=== PATIENT | male | born 1940 | race Caucasian/White ===

== ENCOUNTER 2016-05-19 19:22 | Inpatient (IN) | payer OTHER, MEDICARE ==
[~2016-05-19] VITALS: Ht 172.7 cm; Wt 81.6 kg
[2016-05-19 23:16] LABS: EOSINOPHIL (%) 0.6 % (0-5); EOSINOPHIL COUNT 0.1 K/uL (0-0.3); HEMATOCRIT 46.2 % (38.0-50.0); IMMATURE GRANULOCYTE (%) 0.2 % (0.0-0.7); IMMATURE GRANULOCYTE COUNT 0.2 K/uL; LYMPHOCYTE COUNT 5.3 K/uL (1.0-2.8); MCH 29.1 PG (29.0-34.0); MCHC 33.5 G/DL (30.0-36.0); MCV 86.7 FL (86-99); MEAN PLAT.VOLUME 10.6 uM^3 (9.0-12.4); MONOCYTE (%) 6.1 % (3-12); MONOCYTE COUNT 0.7 K/uL (0-0.8); PLATELET COUNT 166 K/uL (156-360); RBC DIS.WIDTH-SD 40.8 % (39-53); RED BLOOD COUNT 5.33 M/uL (4.00-5.50)
[2016-05-19 23:27] LABS: CHLORIDE 108 mEq/L (99-109); POTASSIUM 4.1 mEq/L (3.7-5.4); SODIUM 141 mEq/L (136-147)
[2016-05-19 23:29] LABS: GLUCOSE 103 mg/dL (70-99)
[2016-05-19 23:30] LABS: ANION GAP 9 MEQ/L (2-14)
[2016-05-19 23:31] LABS: TOTAL BILIRUBIN 0.5 mg/dL (0.0-1.0)
[2016-05-19 23:32] LABS: SERUM ETHYL ALCOHOL < 10 mg/dL
[2016-05-19 23:33] LABS: ALKALINE PHOSPHATASE 72 IU/L (3-129); GFR ESTIMATE (CALCULATED) > 59 mL/min/
[2016-05-19 23:35] LABS: UREA NITROGEN (BUN) 20 mg/dL (9-23)
[2016-05-19 23:36] LABS: SALICYLATE < 5.0 MG/DL (15-30)
[2016-05-20 01:57] LABS: ADD MIUA? NO; BILIRUBIN NEGATIVE; BLOOD NEGATIVE; COLOR YELLOW ((YELLOW)); GLUCOSE (STRIP) NEGATIVE; KETONES 20; LEUKOCYTES NEGATIVE; NITRITE NEGATIVE; PROTEIN (STRIP) NEGATIVE; SPECIFIC GRAVITY 1.023 (1.000-1.030); UCUL ADDED? NO; UROBILINOGEN 0.2 MG/DL (0.2-1.0)
[2016-05-20 02:06] LABS: ADD MEDTOX COMMENT Y; AMPHETAMINE NEGATIVE (500 ng/mL); BARBITURATES NEGATIVE (200 ng/mL); BENZODIAZEPINES PRESUMPTIVE POSITIVE (150 ng/mL); COCAINE NEGATIVE (150 ng/mL); INTERNAL CONTROLS VALID? YES; METHADONE NEGATIVE (200 ng/mL); METHAMPHETAMINE NEGATIVE (500 ng/mL); OPIATES (MORPHINE) NEGATIVE (100 ng/mL); OXYCODONE NEGATIVE (100 ng/mL); PHENCYCLIDINE NEGATIVE (25 ng/mL); PROPOXYPHENE NEGATIVE (300 ng/mL); THC CANNABINOIDS NEGATIVE (50 ng/mL); TRICYCLIC ANTIDEPRESSANTS NEGATIVE (300 ng/mL)
[2016-05-20 02:10] VITALS: BP 119/78
[2016-05-20 03:36] LABS: BENZODIAZEPINES QUANT VALUE 0 NG/ML
[2016-05-20 03:37] LABS: BENZODIAZEPINES, URINE SCREEN Negative (200 ng/mL)
[2016-05-20 07:41] VITALS: BP 109/57
[2016-05-20 15:47] VITALS: BP 152/83
[2016-05-21 07:57] VITALS: BP 126/71
[2016-05-21 15:21] VITALS: BP 136/82
[2016-05-22 07:25] VITALS: BP 117/64
[2016-05-22 15:36] VITALS: BP 131/65
[2016-05-23 07:49] VITALS: BP 112/57
== END 2016-05-23 11:11 | disposition home or self-care (01) | DRG 885 ==
LOC: EME 19:22 → EDOF 05-20 00:44 → 1WEST 05-20 02:08
PROVIDERS: Emergency Medicine
DX: F33.1 Major depressive disorder, recurrent, moderate (principal); F41.1 Generalized anxiety disorder; E78.5 Hyperlipidemia, unspecified; I10 Essential (primary) hypertension; M25.552 Pain in left hip
CPT/HCPCS: 80053; 81003; 84999; 85025; 90839; 99281; 99284; G0480

== ENCOUNTER 2016-11-16 04:58 | Inpatient (IN) | payer OTHER, MEDICARE ==
[~2016-11-16] VITALS: Ht 177.8 cm; Wt 80.2 kg
[2016-11-16] MEDS ORDERED: MIRTAZAPINE15 MG PO (06:07)
[2016-11-16] MEDS ORDERED: NORVASC5 MG PO (06:07)
[2016-11-16] MEDS ORDERED: MIRTAZAPINE30 MG PO (06:08)
[2016-11-16] MEDS ORDERED: XANAX1 MG PO (06:09)
[2016-11-16] MEDS ORDERED: ALPRAZOLAM0.5 MG PO (06:10)
[2016-11-16 06:42] LABS: HEMATOCRIT 42.6 % (38.0-50.0); MCH 29.4 PG (29.0-34.0); MCHC 32.9 G/DL (30.0-36.0); MCV 89.5 FL (86-99); MEAN PLAT.VOLUME 10.3 uM^3 (9.0-12.4); PLATELET COUNT 165 K/uL (156-360); RBC DIS.WIDTH-CV 12.4 % (11.8-14.6); RBC DIS.WIDTH-SD 40.8 % (39-53); RED BLOOD COUNT 4.76 M/uL (4.00-5.50); WHITE BLOOD COUNT 13.5 K/uL (4.1-10.2)
[2016-11-16 06:54] LABS: ADD MIUA? YES; BILIRUBIN NEGATIVE; BLOOD MODERATE; COLOR YELLOW ((YELLOW)); GLUCOSE (STRIP) 50; KETONES 20; LEUKOCYTES NEGATIVE; NITRITE NEGATIVE; PROTEIN (STRIP) NEGATIVE; UROBILINOGEN 0.2 MG/DL (0.2-1.0)
[2016-11-16 06:58] LABS: CHLORIDE 108 mEq/L (99-109); POTASSIUM 4.2 mEq/L (3.7-5.4); SODIUM 140 mEq/L (136-147)
[2016-11-16 06:59] LABS: BACTERIA NONE SEEN /HPF; EPITHELIAL CELLS RARE /HPF; MUCUS TRACE /LPF; RED BLOOD CELLS 20-30 /HPF (0-5); UCUL ADDED? NO; URIC ACID CRYSTALS 4+ /HPF; WHITE BLOOD CELLS 0-5 /HPF (0-5)
[2016-11-16 07:00] LABS: GLUCOSE 132 mg/dL (70-99)
[2016-11-16 07:01] LABS: ANION GAP 12 MEQ/L (2-14)
[2016-11-16 07:02] LABS: TOTAL BILIRUBIN 0.6 mg/dL (0.0-1.0)
[2016-11-16 07:04] LABS: ALKALINE PHOSPHATASE 87 IU/L (3-129); GFR ESTIMATE (CALCULATED) 42 mL/min/
[2016-11-16 07:05] LABS: UREA NITROGEN (BUN) 33 mg/dL (9-23)
[2016-11-16 07:07] LABS: LIPASE 13 U/L (1.0-51.0)
[2016-11-16 11:02] VITALS: BP 132/76
[2016-11-16] MEDS ORDERED: MELATIN3 MG PO (14:47)
[2016-11-16] MEDS ORDERED: MIRALAX17 GM PO (14:47)
[2016-11-16] MEDS ORDERED: FISH OIL 1,0001 EAC7 PO (14:48)
[2016-11-16 14:58] VITALS: BP 110/62
[2016-11-16 18:14] VITALS: BP 115/68
[2016-11-16 19:56] VITALS: BP 101/55
[2016-11-16 23:09] VITALS: BP 109/54
[2016-11-17 04:10] VITALS: BP 106/54
[2016-11-17 07:03] LABS: HEMATOCRIT 31.4 % (38.0-50.0); MCH 30.8 PG (29.0-34.0); MCHC 33.8 G/DL (30.0-36.0); MCV 91.3 FL (86-99); MEAN PLAT.VOLUME 11.5 uM^3 (9.0-12.4); PLATELET COUNT 129 K/uL (156-360); RBC DIS.WIDTH-CV 12.8 % (11.8-14.6); WHITE BLOOD COUNT 9.2 K/uL (4.1-10.2)
[2016-11-17 07:08] LABS: RED BLOOD COUNT 3.44 M/uL (4.00-5.50)
[2016-11-17 07:09] LABS: ANION GAP 7 MEQ/L (2-14); CHLORIDE 113 MEQ/L (99-109); GFR ESTIMATE (CALCULATED) 35 mL/min/; POTASSIUM 4.2 MEQ/L (3.7-5.4); SAMPLE HEMOLYSIS CHECK 0; SAMPLE ICTERIC CHECK 0; SAMPLE LIPEMIA CHECK 0; SODIUM 142 MEQ/L (136-147); UREA NITROGEN (BUN) 30 mg/dL (9-23)
[2016-11-17 07:13] LABS: GLUCOSE 87 mg/dL (70-99)
[2016-11-17 08:52] VITALS: BP 121/58
[2016-11-17 11:46] VITALS: BP 118/63
[2016-11-17 15:44] VITALS: BP 124/61
[2016-11-17 20:12] VITALS: BP 147/68
[2016-11-17 23:01] VITALS: BP 148/70
[2016-11-18 06:14] LABS: HEMATOCRIT 33.1 % (38.0-50.0); MCH 29.7 PG (29.0-34.0); MCHC 32.9 G/DL (30.0-36.0); MCV 90.2 FL (86-99); MEAN PLAT.VOLUME 10.9 uM^3 (9.0-12.4); PLATELET COUNT 132 K/uL (156-360); RBC DIS.WIDTH-CV 12.5 % (11.8-14.6); RED BLOOD COUNT 3.67 M/uL (4.00-5.50); WHITE BLOOD COUNT 7.8 K/uL (4.1-10.2)
[2016-11-18 06:41] LABS: ANION GAP 5 MEQ/L (2-14); CHLORIDE 116 MEQ/L (99-109); GFR ESTIMATE (CALCULATED) 49 mL/min/; GLUCOSE 82 mg/dL (70-99); POTASSIUM 4.1 MEQ/L (3.7-5.4); SAMPLE HEMOLYSIS CHECK 1; SAMPLE ICTERIC CHECK 0; SAMPLE LIPEMIA CHECK 0; SODIUM 143 MEQ/L (136-147); UREA NITROGEN (BUN) 22 mg/dL (9-23)
[2016-11-18 08:15] VITALS: BP 120/58
[2016-11-18] MEDS ORDERED: TAMSULOSIN HCL0.4 MG PO (10:07)
[2016-11-18] MEDS ORDERED: DOCUSATE SODIU100 MG PO (10:07)
[2016-11-18] MEDS ORDERED: CIPROFLOXACIN250 MG PO (10:07)
[2016-11-18] MEDS ORDERED: FINASTERIDE5 MG PO (10:07)
[2016-11-18] MEDS ORDERED: TRAMADOL HCL50 MG PO (10:07)
[2016-11-18 11:37] VITALS: BP 124/70
[2016-11-18 16:20] VITALS: BP 139/68
== END 2016-11-18 16:52 | disposition home or self-care (01) | DRG 694 ==
LOC: EME 04:58 → EDOF 09:59 → ENRESERV 10:05 → 5EAST 10:56 → ENPENDDIS 11-18 → 5EAST 11-18 16:52
PROVIDERS: Emergency Medicine; Internal Medicine; Internal Medicine Nephrology
DX: N13.2 Hydronephrosis with renal and ureteral calculous obstruction (principal); N21.0 Calculus in bladder; N17.9 Acute kidney failure, unspecified; N40.1 Benign prostatic hyperplasia with lower urinary tract symptoms; N13.8 Other obstructive and reflux uropathy; D72.829 Elevated white blood cell count, unspecified; I12.9 Hypertensive chronic kidney disease with stage 1 through stage 4 chronic kidney disease, or unspecified chronic kidney disease; N18.3 Chronic kidney disease, stage 3 (moderate); N28.1 Cyst of kidney, acquired; E78.5 Hyperlipidemia, unspecified; K58.9 Irritable bowel syndrome, unspecified; F32.9 Major depressive disorder, single episode, unspecified; F41.9 Anxiety disorder, unspecified; Z87.442 Personal history of urinary calculi; Z88.5 Allergy status to narcotic agent
CPT/HCPCS: 74000; 74176; 80048; 80053; 80069; 81003; 83690; 83735; 85027; 87040; 99281; 99285; C1726; C1876; J0690; J1170; J1644; J1885; J2250; J2405; J3010; J7030; S0028

== ENCOUNTER 2017-02-22 18:10 | Emergency (ER) | payer OTHER, MEDICARE ==
[~2017-02-22] VITALS: Ht 172.7 cm; Wt 78.9 kg
[~2017-02-22 18:10] MED LIST: ALPRAZOLAM0.5 MG PO; CIPROFLOXACIN250 MG PO; DOCUSATE SODIU100 MG PO; FINASTERIDE5 MG PO; FISH OIL 1,0001 EAC7 PO; MELATIN3 MG PO; MIRALAX17 GM PO; MIRTAZAPINE15 MG PO; MIRTAZAPINE30 MG PO; NORVASC5 MG PO; TAMSULOSIN HCL0.4 MG PO; TRAMADOL HCL50 MG PO; XANAX1 MG PO
[2017-02-22 18:51] LABS: HEMATOCRIT 40.4 % (38.0-50.0); MCH 29.7 PG (29.0-34.0); MCHC 33.7 G/DL (30.0-36.0); MCV 88.2 FL (86-99); MEAN PLAT.VOLUME 10.9 uM^3 (9.0-12.4); PLATELET COUNT 171 K/uL (156-360); RBC DIS.WIDTH-CV 12.5 % (11.8-14.6); RBC DIS.WIDTH-SD 40.5 % (39-53); RED BLOOD COUNT 4.58 M/uL (4.00-5.50); WHITE BLOOD COUNT 8.7 K/uL (4.1-10.2)
[2017-02-22 19:05] LABS: CHLORIDE 107 mEq/L (99-109); GLUCOSE 100 mg/dL (70-99); SODIUM 137 mEq/L (136-147)
[2017-02-22 19:06] LABS: ANION GAP 8 MEQ/L (2-14)
[2017-02-22 19:09] LABS: GFR ESTIMATE (CALCULATED) > 59 mL/min/; UREA NITROGEN (BUN) 24 mg/dL (9-23)
[2017-02-22 19:19] LABS: ADD MIUA? YES; BILIRUBIN NEGATIVE; BLOOD NEGATIVE; COLOR STRAW ((YELLOW)); GLUCOSE (STRIP) NEGATIVE; KETONES NEGATIVE; LEUKOCYTES TRACE; NITRITE NEGATIVE; PROTEIN (STRIP) NEGATIVE; SPECIFIC GRAVITY 1.008 (1.000-1.030); UROBILINOGEN 0.2 MG/DL (0.2-1.0)
[2017-02-22 19:26] LABS: BACTERIA NONE SEEN /HPF; EPITHELIAL CELLS RARE /HPF; MUCUS NONE SEEN /LPF; RED BLOOD CELLS 0-5 /HPF (0-5); UCUL ADDED? NO; WHITE BLOOD CELLS 0-5 /HPF (0-5)
[2017-02-22 19:30] LABS: AMPHETAMINE NEGATIVE (500 ng/mL); BARBITURATES NEGATIVE (200 ng/mL); BENZODIAZEPINES NEGATIVE (150 ng/mL); COCAINE NEGATIVE (150 ng/mL); METHADONE NEGATIVE (200 ng/mL); METHAMPHETAMINE NEGATIVE (500 ng/mL); OPIATES (MORPHINE) NEGATIVE (100 ng/mL); OXYCODONE NEGATIVE (100 ng/mL); PHENCYCLIDINE NEGATIVE (25 ng/mL); PROPOXYPHENE NEGATIVE (300 ng/mL); THC CANNABINOIDS NEGATIVE (50 ng/mL); TRICYCLIC ANTIDEPRESSANTS NEGATIVE (300 ng/mL)
[2017-02-22 19:31] LABS: INTERNAL CONTROLS VALID? YES
[2017-02-22 19:43] LABS: TROP-I INTERPRETATION NEGATIVE; TROPONIN-I < 0.01 ng/mL (0.0-0.30)
[2017-02-22 21:01] VITALS: BP 129/81
== END 2017-02-22 21:01 | disposition left against medical advice (07) ==
LOC: EME 18:10
DX: F41.9 Anxiety disorder, unspecified (principal); I10 Essential (primary) hypertension; E78.5 Hyperlipidemia, unspecified; F32.9 Major depressive disorder, single episode, unspecified; K58.9 Irritable bowel syndrome, unspecified; Z85.9 Personal history of malignant neoplasm, unspecified; Z88.5 Allergy status to narcotic agent
CPT/HCPCS: 80048; 81003; 84484; 85027; 93005; 99281; 99284